=== PATIENT | female | born 1975 | race African-American/Black ===

== ENCOUNTER 2019-03-26 18:32 | Emergency (ER) | payer OTHER ==
[~2019-03-26] VITALS: Ht 157.5 cm; Wt 91.0 kg
[2019-03-26] MEDS ORDERED: LORATADINE 10MG TABLET PO SCH (19:00)
[2019-03-26] MEDS ORDERED: IBUPROFEN 600MG TABLET PO ONE (19:00)
[2019-03-26 19:02] VITALS: BP 174/99
== END 2019-03-26 20:05 | disposition home or self-care (01) ==
LOC: ER 18:32
DX: R51 Headache (principal); F32.9 Major depressive disorder, single episode, unspecified; I10 Essential (primary) hypertension; F90.9 Attention-deficit hyperactivity disorder, unspecified type; Z88.6 Allergy status to analgesic agent
CPT/HCPCS: 99283